=== PATIENT | male | born 1955 | race Caucasian/White ===

== ENCOUNTER 2023-12-22 10:13 | Inpatient (IN) | payer MEDICARE ==
[2023-12-22 10:42] LABS: Basophils # (A) 0.1 k/uL (0-0.2); Basophils % (A) 1 %; Eosinophils # (A) 0.7 k/uL (0-0.7); Eosinophils % (A) 6 %; HCT 48.4 % (39.0-53.0); HGB 15.7 gm/dL (13.0-17.5); Lymphocytes # (A) 2.2 k/uL (1.0-4.8); Lymphocytes % (A) 18 %; MCH 32.1 pg (25.0-35.0); MCHC 32.4 g/dL (31.0-37.0); Mean Platelet Volume 7.7; Monocytes # (A) 0.5 k/uL (0-1.0); Monocytes % (A) 4 %; Neutrophils # (A) 8.4 k/uL (1.3-7.7); Neutrophils % (A) 70 %; Platelet Count 216 k/uL (150-450); RBC 4.89 m/uL (4.30-5.90); RDW 13.5 % (11.5-15.5)
[2023-12-22] MEDS: SODIUM CHLORIDE 0.9% 500 ML 500 ML IV STA (10:42)
[2023-12-22 10:48] LABS: AST 30 U/L (17-59); African American GFR (CKD) 59 (>60 ml/min/1.73 sqM); Albumin 4.6 g/dL (3.5-5.0); Alkaline Phosphatase 83 U/L (38-126); Anion Gap 19 mmol/L; Blood Urea Nitrogen 12 mg/dL (9-20); Calcium 9.6 mg/dL (8.4-10.2); Carbon Dioxide 14 mmol/L (22-30); Chloride 102 mmol/L (98-107); Creatine Kinase 136 U/L (55-170); Glucose 145 mg/dL (74-99); Non-African American GFR(CKD) 51 (>60 ml/min/1.73 sqM); Potassium 4.5 mmol/L (3.5-5.1); Sodium 135 mmol/L (137-145); Total Bilirubin 0.7 mg/dL (0.2-1.3)
[2023-12-22 10:54] LABS: ALT 35 U/L (4-49)
--- NOTE | 2023-12-22 10:58 | ED ---
General Adult HPI - General Chief complaint: Neuro Symptoms/Deficit Stated complaint: neuro symp Time Seen by Provider: 12/22/23 10:15 Source: patient, RN notes reviewed, old records reviewed Mode of arrival: EMS Limitations: no limitations - History of Present Illness Initial comments: This is a 67-year-old male who is brought in by EMS patient was awake and acting normal drinking coffee when all of a sudden his left arm started to curl up and started shaking and the patient thereafter went unresponsive he was unresponsive for about 5 minutes according to family while he was unresponsive the sister states he was shaking and EMS arrived he remained unresponsive when he woke he was having difficulty moving his left side he had some slurred speech but that slowly all resolved by the time he got to the emergency department. 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 Patient denies headache patient denies any numbness or weakness currently. Patient denies any chest pain difficulty breathing shortness of breath. Patient has any recent fever chills or cough or patient has any abdominal pain patient has nausea vomiting diarrhea - Related Data Home Medications Medication Instructions Recorded Confirmed Albuterol Sulfate [Albuterol 1 - 2 puff PO RT-Q4H PRN 12/22/23 12/22/23 Sulfate Hfa] Atorvastatin [Lipitor] 40 mg PO HS 12/22/23 12/22/23 Budesonide/Formoterol Fumarate 2 puff INHALATION RT-BID 12/22/23 12/22/23 [Symbicort 160-4.5 Mcg Inhaler] Clopidogrel [Plavix] 75 mg PO DAILY 12/22/23 12/22/23 Folic Acid 1 mg PO DAILY 12/22/23 12/22/23 Furosemide [Lasix] 20 mg PO DAILY 12/22/23 12/22/23 Metoprolol Tartrate [Lopressor] 25 mg PO DAILY 12/22/23 12/22/23 NIFEdipine XL [Procardia XL] 60 mg PO DAILY 12/22/23 12/22/23 Nitroglycerin Sl Tabs [Nitrostat] 0.4 mg SUBLINGUAL Q5M PRN 12/22/23 12/22/23 [place]-3/Dha/Epa/Fish Oil [Fish Oil 2 cap PO BID 12/22/23 12/22/23 1,000 mg Softgel] Pantoprazole [Protonix] 40 mg PO DAILY 12/22/23 12/22/23 Potassium Chloride ER [K-Dur 10] 10 meq PO DAILY 12/22/23 12/22/23 Sertraline [Zoloft] 100 mg PO DAILY 12/22/23 12/22/23 lisinopriL [Zestril] 20 mg PO DAILY 12/22/23 12/22/23 metHOTREXate sodium [Methotrexate] 15 mg PO WHITTEN 12/22/23 12/22/23 traZODone HCL [Desyrel] 100 mg PO HS 12/22/23 12/22/23 Allergies Allergy/AdvReac Type Severity Reaction Status Date / Time No Known Allergies Allergy Verified 12/22/23 14:45 Review of Systems ROS Statement: Those systems with pertinent positive or pertinent negative responses have been documented in the HPI. ROS Other: All systems not noted in ROS Statement are negative. Past Medical History Past Medical History: CVA/TIA, Hyperlipidemia, Hypertension History of Any Multi-Drug Resistant Organisms: None Reported Additional Past Surgical History / Comment(s): CABG 2018 Past Psychological History: Depression Smoking Status: Never smoker Past Alcohol Use History: Occasional Past Drug Use History: Marijuana General Exam - General Exam Comments Initial Comments: GENERAL: Patient is well-developed and well-nourished. Patient is nontoxic and well- hydrated and is in mild distress. ENT: Neck is soft and supple. No significant lymphadenopathy is noted. Oropharynx is clear. Moist mucous membranes. Neck has full range of motion without eliciting any pain. EYES: The sclera were anicteric and conjunctiva were pink and moist. Extraocular movements were intact and pupils were equal round and reactive to light. Eyelids were unremarkable. PULMONARY: Unlabored respirations. Good breath sounds bilaterally. No audible rales rhonchi or wheezing was noted. CARDIOVASCULAR: There is a regular rate and rhythm without any murmurs gallops or rubs. ABDOMEN: Soft and nontender with normal bowel sounds. SKIN: Skin is clear with no lesions or rashes and otherwise unremarkable. NEUROLOGIC: Patient is alert and oriented x3. Cranial nerves II through XII are grossly intact. Motor and sensory are also intact. Patient bit his tongue so he does have a little mumbled speech but otherwise he is fairly clear and when family arrived they stated his voice sounded normal to patient's NIH is 0 MUSCULOSKELETAL: Normal extremities with adequate strength and full range of motion. LYMPHATICS: No significant lymphadenopathy is noted PSYCHIATRIC: Normal psychiatric evaluation. Limitations: no limitations Course Vital Signs 12/22/23 12/22/23 12/22/23 10:15 10:45 14:00 Temperature 97.8 F 98.8 F Pulse Rate 87 77 67 Respiratory 18 18 18 Rate Blood Pressure 143/80 148/72 113/74 O2 Sat by Pulse 96 94 L 98 Oximetry Medical Decision Making - Medical Decision Making EKG is interpreted by myself. EKG shows a sinus rhythm at 81 bpm parable 143 QRS is 90 QT interval is 409 QTc is 446. Patient's EKG shows no ST segment ovation or depression. Was pt. sent in by a medical professional or institution (, PA, LICENSED EMBALMER, urgent care, hospital, or halfway...) When possible be specific @ -[No] Did you speak to anyone other than the patient for history (EMS, parent, family, police, friend...)? What history was obtained from this source @ -EMS gave clear history because during the episode the patient was unresponsive. Family later contributed to the history because they were there when the patient went unresponsive Did you review nursing and triage notes (agree or disagree)? Why? @ -[I reviewed and agree with nursing and triage notes] Were old charts reviewed (outside hosp., previous admission, EMS record, old EKG, old radiological studies, urgent care reports/EKG's, halfway records)? Report findings @ -[No old charts were reviewed] Differential Diagnosis? @ -Differential Seizure: Recurrent seizure disorder, febrile seizure, alcohol withdrawal, stimulants, meningitis, encephalitis, intercranial hemorrhage, intracranial tumor, stroke, eclampsia, thyrotoxicosis, hypocalcemia, hyponatremia, hypernatremia, hyp omagnesemia, psychogenic, this is not meant to be an all-inclusive list. Differential CVA Ischemic stroke, hemorrhagic stroke, brain tumor, atypical migraine, Wernicke's encephalopathy, seizure, multiple sclerosis, meningitis, encephalitis, hypoglycemia, Guillain-Murphy, electrolytes disturbance, myasthenia gravis.... This is not meant to be an all-inclusive list EKG interpreted by me (3pts min.). @ -[As above] X-rays interpreted by me (1pt min.). @ -Chest x-ray shows no acute abnormality CT interpreted by me (1pt min.). @ -CT of the brain shows no significant acute abnormality there is remote injury. CT angiogram shows a right internal carotid artery occlusion. U/S interpreted by me (1pt. min.). @ -[None done] What testing was considered but not performed or refused? (CT, X-rays, U/S, la bs)? Why? @ -[None] What meds were considered but not given or refused? Why? @ -[None] Did you discuss the management of the patient with other professionals (professionals i.e. , PA, LICENSED EMBALMER, lab, RT, psych nurse, social science analyst, help desk operator, teacher, electoral officer, watch case polisher)? Give summary @ -I spoke with the treatment and hospitalist they agreed to admit the patient admit the patient orders. I spoke with Dr. Elizondo on [address] Molina has agreed the patient should be admitted put on Plavix and aspirin and have a vascular surgeon see the patient. Was smoking cessation discussed for >3mins.? @ -[No] Was critical care preformed (if so, how long)? @ -35 minutes Were there social determinants of health that impacted care today? How? (Homelessness, low income, unemployed, alcoholism, drug addiction, transportation, low edu. Level, literacy, decrease access to med. care, nursing home, rehab)? @ -[No] Was there de-escalation of care discussed even if they declined (Discuss DNR or withdrawal of care, Hospice)? DNR status @ -[No] What co-morbidities impacted this encounter? (DM, HTN, Smoking, COPD, CAD, Cancer, CVA, ARF, Chemo, Hep., AIDS, mental health diagnosis, sleep apnea, morbid obesity)? @ -[None] Was patient admitted / discharged? Hospital course, mention meds given and route, prescriptions, significant lab abnormalities, going to OR and other pertinent info. @ -Once family arrived they gave the history which was much more consistent with a seizure than a stroke. Patient's NIH on arrival was 0 he did have a little bit of muffled speech but he thought because he had bit his tongue and that slowly cleared up once the swelling went down. I spoke with [facility] hospitalist agreed admit the patient but the patient and consulted neurology as well as vascular surgery. Elevation of the lactic acid does not appear to be from infection appears to be secondary from seizure Undiagnosed new problem with uncertain prognosis? @ -[No] Drug Therapy requiring intensive monitori. Patient'sg for toxicity (Heparin, Nitro, Insulin, Cardizem)? @ -[No] Were any procedures done? @ -[No] Diagnosis/symptom? @ -New onset seizure Acute, or Chronic, or Acute on Chronic? @ -Acute Uncomplicated (without systemic symptoms) or Complicated (systemic symptoms)? @ -[default] Side effects of treatment? @ -[No] Exacerbation, Progression, or Severe Exacerbation? @ -[No] Poses a threat to life or bodily function? How? (Chest pain, USA, VT, pneumonia, PE, COPD, DKA, ARF, appy, cholecystitis, CVA, Diverticulitis, Homicidal, Suicidal, threat to staff... and all critical care pts) @ -Yes this could be potentially underlying stroke which could lead to significant CVA. - Lab Data Result diagrams: 12/22/23 10:28 12/22/23 10:28 Lab Results 12/22/23 12/22/23 12/22/23 Range/Units 10:28 10:28 10:28 WBC 12.0 H (3.8-10.6) k/uL RBC 4.89 (4.30-5.90) m/uL Hgb 15.7 (13.0-17.5) gm/dL Hct 48.4 (39.0-53.0) % MCV 99.0 (80.0-100.0) fL MCH 32.1 (25.0-35.0) pg MCHC 32.4 (31.0-37.0) g/dL RDW 13.5 (11.5-15.5) % Plt Count 216 (150-450) k/uL MPV 7.7 Neutrophils % 70 % Lymphocytes % 18 % Monocytes % 4 % Eosinophils % 6 % Basophils % 1 % Neutrophils # 8.4 H (1.3-7.7) k/uL Lymphocytes # 2.2 (1.0-4.8) k/uL Monocytes # 0.5 (0-1.0) k/uL Eosinophils # 0.7 (0-0.7) k/uL Basophils # 0.1 (0-0.2) k/uL PT 10.4 (10.0-12.5) sec INR 0.9 (<1.2) APTT 24.1 (22.0-30.0) sec Sodium 135 L (137-145) mmol/L Potassium 4.5 (3.5-5.1) mmol/L Chloride 102 (98-107) mmol/L Carbon Dioxide 14 L (22-30) mmol/L Anion Gap 19 mmol/L BUN 12 (9-20) mg/dL Creatinine 1.41 H (0.66-1.25) mg/dL Est GFR (CKD-EPI)AfAm 59 (>60 ml/min/1.73 sqM) Est GFR (CKD-EPI)NonAf 51 (>60 ml/min/1.73 sqM) Glucose 145 H (74-99) mg/dL Lactic Ac Sepsis Rflx Plasma Lactic Acid Lloyd (0.7-2.0) mmol/L Calcium 9.6 (8.4-10.2) mg/dL Total Bilirubin 0.7 (0.2-1.3) mg/dL AST 30 (17-59) U/L ALT 35 (4-49) U/L Alkaline Phosphatase 83 (38-126) U/L Creatine Kinase 136 (55-170) U/L Troponin I (0.000-0.034) ng/mL Total Protein 7.0 (6.3-8.2) g/dL Albumin 4.6 (3.5-5.0) g/dL 12/22/23 12/22/23 12/22/23 Range/Units 10:28 10:28 11:40 WBC (3.8-10.6) k/uL RBC (4.30-5.90) m/uL Hgb (13.0-17.5) gm/dL Hct (39.0-53.0) % MCV (80.0-100.0) fL MCH (25.0-35.0) pg MCHC (31.0-37.0) g/dL RDW (11.5-15.5) % Plt Count (150-450) k/uL MPV Neutrophils % % Lymphocytes % % Monocytes % % Eosinophils % % Basophils % % Neutrophils # (1.3-7.7) k/uL Lymphocytes # (1.0-4.8) k/uL Monocytes # (0-1.0) k/uL Eosinophils # (0-0.7) k/uL Basophils # (0-0.2) k/uL PT (10.0-12.5) sec INR (<1.2) APTT (22.0-30.0) sec Sodium (137-145) mmol/L Potassium (3.5-5.1) mmol/L Chloride (98-107) mmol/L Carbon Dioxide (22-30) mmol/L Anion Gap mmol/L BUN (9-20) mg/dL Creatinine (0.66-1.25) mg/dL Est GFR (CKD-EPI)AfAm (>60 ml/min/1.73 sqM) Est GFR (CKD-EPI)NonAf (>60 ml/min/1.73 sqM) Glucose (74-99) mg/dL Lactic Ac Sepsis Rflx Y Plasma Lactic Acid Lloyd 13.3 H* (0.7-2.0) mmol/L Calcium (8.4-10.2) mg/dL Total Bilirubin (0.2-1.3) mg/dL AST (17-59) U/L ALT (4-49) U/L Alkaline Phosphatase (38-126) U/L Creatine Kinase (55-170) U/L Troponin I <0.012 (0.000-0.034) ng/mL Total Protein (6.3-8.2) g/dL Albumin (3.5-5.0) g/dL 12/22/23 Range/Units 15:16 WBC (3.8-10.6) k/uL RBC (4.30-5.90) m/uL Hgb (13.0-17.5) gm/dL Hct (39.0-53.0) % MCV (80.0-100.0) fL MCH (25.0-35.0) pg MCHC (31.0-37.0) g/dL RDW (11.5-15.5) % Plt Count (150-450) k/uL MPV Neutrophils % % Lymphocytes % % Monocytes % % Eosinophils % % Basophils % % Neutrophils # (1.3-7.7) k/uL Lymphocytes # (1.0-4.8) k/uL Monocytes # (0-1.0) k/uL Eosinophils # (0-0.7) k/uL Basophils # (0-0.2) k/uL PT (10.0-12.5) sec INR (<1.2) APTT (22.0-30.0) sec Sodium (137-145) mmol/L Potassium (3.5-5.1) mmol/L Chloride (98-107) mmol/L Carbon Dioxide (22-30) mmol/L Anion Gap mmol/L BUN (9-20) mg/dL Creatinine (0.66-1.25) mg/dL Est GFR (CKD-EPI)AfAm (>60 ml/min/1.73 sqM) Est GFR (CKD-EPI)NonAf (>60 ml/min/1.73 sqM) Glucose (74-99) mg/dL Lactic Ac Sepsis Rflx Plasma Lactic Acid Lloyd 1.2 (0.7-2.0) mmol/L Calcium (8.4-10.2) mg/dL Total Bilirubin (0.2-1.3) mg/dL AST (17-59) U/L ALT (4-49) U/L Alkaline Phosphatase (38-126) U/L Creatine Kinase (55-170) U/L Troponin I (0.000-0.034) ng/mL Total Protein (6.3-8.2) g/dL Albumin (3.5-5.0) g/dL Critical Care Time Critical Care Time: Yes Total Critical Care Time: 35 Disposition Clinical Impression: New onset seizure, Internal carotid artery occlusion Disposition: ADMITTED IP TO THIS [facility] Is patient prescribed a controlled substance at d/c from ED?: No Time of Disposition: 15:15
[2023-12-22 10:59] LABS: INR 0.9 (<1.2); Partial Thromboplastin Time 24.1 sec (22.0-30.0); Prothrombin Time 10.4 sec (10.0-12.5)
--- NOTE | 2023-12-22 11:06 | CT ---
EXAMINATION TYPE: CT brain wo con CT DLP: 1164.7 mGycm, Automated exposure control for dose reduction was used. DATE OF EXAM: 12/22/2023 10:45 AM COMPARISON: No priors available. CLINICAL INDICATION:Male, 68 years old with history of Neuro deficit, acute, stroke suspected, LT kady e deficit. previous CVA. TECHNIQUE: Brain: Axial CT images of the brain were obtained with coronal and sagittal reformats created and rev iewed. Contrast used: None. Oral contrast used: None. FINDINGS: There is mild to moderate generalized brain atrophy with associated enlargement of the ventricles and CSF spaces. There is additional mild superimposed ex vacuo dilatation of the right lateral ventricle secondary to a moderate-sized area of encephalomalacia in the right MCA territory compatible with a remote infarct. Area of hypoattenuation in the left cerebellar hemisphere also suggestive of probably remote infarct. No definite loss of teran matter distinction or sulcal effacement is seen to suggest acute territorial infarction. Remote-appearing small lacunar infarct in the left basal ganglia near the caudate head. No evidence of acute intracranial hemorrhage, extra-axial fluid collection, mass effect, or midline s hift. No acute osseous abnormality is seen. Mild mucosal thickening in the right maxillary sinus without ap preciable paranasal sinus fluid accumulation. Mastoid air cells are clear. Mild atherosclerotic calcifications of the larger arteries near the skull base. MRI is more sensitive for detecting acute processes such as infarct, and may be considered if clinica lly warranted. IMPRESSION: 1. No acute intracranial CT abnormality. 2. Remote infarcts right MCA territory, left cerebellum, and left basal ganglia lacunar infarct. 3. Mild to moderate generalized atrophy.
--- NOTE | 2023-12-22 12:20 | XR ---
EXAMINATION TYPE: XR chest 2V DATE OF EXAM: 12/22/2023 11:19 AM CLINICAL INDICATION:Male, 68 years old with history of altered mental status; H COMPARISON: None TECHNIQUE: XR chest 2V Frontal view of the chest. FINDINGS: Lungs/Pleura: There is no evidence of pleural effusion, focal consolidation, or pneumothorax. Pulmonary vascularity: Unremarkable. Heart/mediastinum: Cardiomediastinal silhouette is unremarkable. Musculoskeletal: No acute osseous pathology. Midline sternotomy wires are noted.Right-sided rib fract ures appear chronic. Other findings: None IMPRESSION: No acute cardiopulmonary disease/process.
--- NOTE | 2023-12-22 13:38 | CT ---
EXAMINATION TYPE: CT angio head neck DATE OF EXAM: 12/22/2023 12:24 PM COMPARISON: Correlation with concurrent CT brain. CLINICAL INDICATION:Male, 68 years old with history of Neuro deficit, acute, stroke suspected; PHH, C ODE STROKE TECHNIQUE: Axially acquired helical CT angiogram of the head and neck was obtained with contrast. Axi al images are supplemented with 3D reconstructions [facility] NASCET criteria used. Contrast used: 65 ml mL of Isovue 370 IV Oral contrast used: None. CT DLP: 596.2 mGycm, Automated exposure control for dose reduction was used. FINDINGS: CTA Neck: A 3 vessel aortic arch is shown. Moderate mostly calcified atherosclerotic plaque is present along t he aortic arch and involving the proximal branch vessels with mild stenosis of the branch vessels. N o evidence of dissection. Right carotid system: The common carotid is patent. There is heavy mixed soft and calcified plaque at the carotid bifurcation and proximal ICA, with nonopacification of the proximal ICA and continuing d istally to at least the skull base, consistent with occlusion. The ECA is patent. Left carotid system: The common carotid is patent. There is moderate soft and calcified plaque at the carotid bifurcation and proximal ICA, resulting in 50-60% luminal stenosis of the proximal ICA. ICA is thereafter patent to the skull base. The ECA is patent. Vertebral arteries: Moderate stenosis of the origin of the right vertebral artery appears related to mostly calcified plaque. Vessel is thereafter patent. The left vertebral artery is highly diminutive, and its origin is difficult to visualize. The proxima l portion may be occluded. Farther cranially, a small caliber opacified vertebral artery is seen with in the transverse foramina and appears patent to the C1 level, however again not clearly seen in its proximal V4 segment and may be occluded. Farther distally near the basilar, this vessel reappears whi ch could be from collateral flow. Other: Visualized neck soft tissues show no acute concerning abnormality. No sizable thyroid nodulari ty of concern. Cervical spine shows mild/moderate degenerative changes with mild/moderate canal and foraminal stenos es at the C5-6 and C6-7 levels primarily. No acute bony abnormality is suggested. Included lung apices show moderate to severe emphysematous changes without evidence of acute infiltra te or pneumothorax. There are relatively flat multiple pleural plaques demonstrated bilaterally, at l east one of which is partially calcified on the right. There are partially seen sternotomy wires, and likely post-CABG changes. CTA Head: On the right, there is partial reconstitution of the occluded cervical ICA proximal to the siphon por tion, but then mostly calcified plaque is present which again appears to result in occlusion or near occlusion. At the terminus, a patent right posterior communicating artery is seen, likely supplying t he right MCA and RUCHI. The right MCA appears patent without evidence of critical stenosis or abrupt cu t off/occlusion seen. Mild irregularity of this vessel and decreased caliber compared to the left, li steven from atherosclerosis and sequela of the previous sizable right MCA infarct. Right RUCHI is patent with suggestion of mild atherosclerotic changes. Anterior communicating artery is not clearly identif ied. On the left, there is moderate mostly calcified plaque throughout the siphon region without critical stenosis seen. The carotid terminus appears patent, and the left MCA appears patent and larger in jay iber compared to the right side. No high-grade stenosis, cut off/occlusion is seen. The left RUCHI appe ars patent with mild atherosclerotic disease. A left posterior communicating artery is not identified . Posteriorly, the diminutive left vertebral artery is likely occluded in its proximal intracranial por tion with some reconstitution seen distally and remains patent to the basilar. The dominant right дмитрий tebral artery shows mild atherosclerotic disease but no significant stenosis. Basilar artery is paten t, appears normal in course and caliber and the basilar bifurcation is unremarkable without aneurysm seen. Proximal bilateral posterior cerebral arteries appear patent. No abnormal intracranial enhancement is suggested. Please refer to prior head CT for further details. The dural venous sinuses appear grossly enhancing without evidence to suggest thrombus. IMPRESSION: CTA neck: 1. Moderate mostly calcified atherosclerotic plaque along the aortic arch and proximal branch vessel s with mild stenosis of the branch vessels. 2. Right common carotid is patent. Heavy plaque is present, with occlusion of the right ICA beginnin g at its origin. 3. Left common carotid is patent. Moderate soft and calcified plaque at the carotid bifurcation and proximal ICA, resulting in 50-60% luminal diameter stenosis of the proximal left ICA. 4. Moderate stenosis of the origin of the right vertebral artery appears related to mostly calcified plaque. Vessel is thereafter patent. 5. Left vertebral artery is highly diminutive, and segmental occlusions in its proximal and distal a spects are suggested with some reconstitution in the distal V4 segment. 6. Moderate to severe pulmonary emphysematous changes in the apices. Multiple pleural plaques demons trated bilaterally, at least one of which is partially calcified on the right, likely related to prio r asbestos exposure. Further evaluation and follow-up with outpatient chest CT may be of benefit. CTA head: 1. Partial reconstitution of the occluded right ICA proximal to the siphon portion, but then mostly calcified plaque again appears to result in occlusion or near occlusion. At the terminus, a patent ri ght posterior communicating artery is seen, likely supplying the right MCA and RUCHI. 2. Right MCA appears patent without evidence of critical stenosis or abrupt cut off/occlusion. Mild irregularity of this vessel and decreased caliber compared to the left, likely from atherosclerosis a nd sequela of the previous right MCA territory infarct. 3. Moderate mostly calcified plaque throughout the left ICA siphon region without critical stenosis seen. The carotid terminus appears patent, and the left MCA appears patent and larger in caliber comp ared to the right side. No high-grade stenosis, cut off/occlusion is seen. 4. Bilateral patent ACAs with mild atherosclerotic disease.
[2023-12-22] MEDS: ASPIRIN 325 MG TAB PO STA (16:37)
--- NOTE | 2023-12-22 19:42 | P.HPIM ---
History of Present Illness H&P Date: 12/22/23 Chief Complaint: Neurological symptoms 67-year-old male who is brought in by EMS patient was awake and acting normal drinking coffee when all of a sudden his left arm started to curl up and started shaking and the patient thereafter went unresponsive he was unresponsive for about 5 minutes according to family while he was unresponsive the sister states he was shaking and EMS arrived he remained unresponsive when he woke he was having difficulty moving his left side he had some slurred speech but that slowly all resolved by the time he got to the emergency department. 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 Patient denies headache patient denies any numbness or weakness currently. Patient denies any chest pain difficulty breathing shortness of breath. Patient has any recent fever chills or cough or patient has any abdominal pain patient has nausea vomiting diarrhea Blood work completed in ED reveals a WBC of 12, hemoglobin of 15.7 and platelet count of 216, sodium 135, potassium 4.5, bicarb 14, creatinine 1.41, lactic acid level of 13.3 and blood glucose of 145, lactic acid less than 0.012 EKG shows a sinus rhythm at 81 bpm parable 143 QRS is 90 QT interval is 409 QTc is 446. Patient's EKG shows no ST segment ovation or depression. -Chest x-ray shows no acute abnormality CT of the brain shows no significant acute abnormality there is remote injury. CT angiogram shows a right internal carotid artery occlusion. Review of Systems REVIEW OF SYSTEMS: CONSTITUTIONAL: No fever, no malaise, no fatigue. HEENT: No recent visual problems or hearing problems. Denied any sore throat. CARDIOVASCULAR: No chest pain, orthopnea, PND, no palpitations, no syncope. PULMONARY: No shortness of breath, no cough, no hemoptysis. GASTROINTESTINAL: No diarrhea, no nausea, no vomiting, no abdominal pain. NEUROLOGICAL: No headaches, no weakness, no numbness. HEMATOLOGICAL: Denies any bleeding or petechiae. GENITOURINARY: Denies any burning micturition, frequency, or urgency. MUSCULOSKELETAL/RHEUMATOLOGICAL: Denies any joint pain, swelling, or any muscle pain. ENDOCRINE: Denies any polyuria or polydipsia. The rest of the 14-point review of systems is negative. Past Medical History Past Medical History: CVA/TIA, Hyperlipidemia, Hypertension History of Any Multi-Drug Resistant Organisms: None Reported Additional Past Surgical History / Comment(s): CABG 2018 Past Psychological History: Depression Smoking Status: Never smoker Past Alcohol Use History: Occasional Past Drug Use History: Marijuana Medications and Allergies Home Medications Medication Instructions Recorded Confirmed Type Albuterol Sulfate [Albuterol 1 - 2 puff PO RT-Q4H PRN 12/22/23 12/22/23 History Sulfate Hfa] Atorvastatin [Lipitor] 40 mg PO HS 12/22/23 12/22/23 History Budesonide/Formoterol Fumarate 2 puff INHALATION RT-BID 12/22/23 12/22/23 History [Symbicort 160-4.5 Mcg Inhaler] Clopidogrel [Plavix] 75 mg PO DAILY 12/22/23 12/22/23 History Folic Acid 1 mg PO DAILY 12/22/23 12/22/23 History Furosemide [Lasix] 20 mg PO DAILY 12/22/23 12/22/23 History Metoprolol Tartrate [Lopressor] 25 mg PO DAILY 12/22/23 12/22/23 History NIFEdipine XL [Procardia XL] 60 mg PO DAILY 12/22/23 12/22/23 History Nitroglycerin Sl Tabs [Nitrostat] 0.4 mg SUBLINGUAL Q5M PRN 12/22/23 12/22/23 History [place]-3/Dha/Epa/Fish Oil [Fish Oil 2 cap PO BID 12/22/23 12/22/23 History 1,000 mg Softgel] Pantoprazole [Protonix] 40 mg PO DAILY 12/22/23 12/22/23 History Potassium Chloride ER [K-Dur 10] 10 meq PO DAILY 12/22/23 12/22/23 History Sertraline [Zoloft] 100 mg PO DAILY 12/22/23 12/22/23 History lisinopriL [Zestril] 20 mg PO DAILY 12/22/23 12/22/23 History metHOTREXate sodium [Methotrexate] 15 mg PO WHITTEN 12/22/23 12/22/23 History traZODone HCL [Desyrel] 100 mg PO HS 12/22/23 12/22/23 History Allergies Allergy/AdvReac Type Severity Reaction Status Date / Time No Known Allergies Allergy Verified 12/22/23 14:45 Physical Exam Vitals: Vital Signs Temp Pulse Resp BP Pulse Ox 12/22/23 15:00 67 17 114/78 96 12/22/23 14:00 98.8 F 67 18 113/74 98 12/22/23 10:45 77 18 148/72 94 L 12/22/23 10:15 97.8 F 87 18 143/80 96 Intake and Output 12/22/23 12/22/23 12/22/23 06:59 14:59 22:59 Other: Weight 83.007 kg Patient is well-developed and well-nourished. Patient is nontoxic and well-hydr ated and is in mild distress. ENT:Neck is soft and supple. No significant lymphadenopathy is noted. Oropharynx is clear. Moist mucous membranes. Neck has full range of motion without eliciting any pain. EYES:The sclera were anicteric and conjunctiva were pink and moist. Extraocular movements were intact and pupils were equal round and reactive to light. Eyelids were unremarkable. PULMONARY:Unlabored respirations. Good breath sounds bilaterally. No audible rales rhonchi or wheezing was noted. CARDIOVASCULAR:There is a regular rate and rhythm without any murmurs gallops or rubs. ABDOMEN:Soft and nontender with normal bowel sounds. SKIN:Skin is clear with no lesions or rashes and otherwise unremarkable. NEUROLOGIC:Patient is alert and oriented x3. Cranial nerves II through XII are grossly intact. Motor and sensory are also intact. Patient bit his tongue so he does have a little mumbled speech but otherwise he is fairly clear and when family arrived they stated his voice sounded normal to patient's NIH is 0 MUSCULOSKELETAL:Normal extremities with adequate strength and full range of motion. PSYCHIATRIC:Normal psychiatric evaluation. Results CBC & Chem 7: 12/22/23 10:28 12/22/23 10:28 Labs: Abnormal Lab Results - Last 24 Hours (Table) 12/22/23 12/22/23 12/22/23 Range/Units 10:28 10:28 10:28 WBC 12.0 H (3.8-10.6) k/uL Neutrophils # 8.4 H (1.3-7.7) k/uL Sodium 135 L (137-145) mmol/L Carbon Dioxide 14 L (22-30) mmol/L Creatinine 1.41 H (0.66-1.25) mg/dL Glucose 145 H (74-99) mg/dL Plasma Lactic Acid Lloyd 13.3 H* (0.7-2.0) mmol/L Assessment and Plan Assessment: 1. Stable new onset seizures -History provided by family members at bedside and most consistent with stroke -Elevated lactic acid likely secondary to seizure; no signs of infection -We will order prolactin levels -Consult neurology 2. Right internal carotid artery occlusion; consult vascular surgery for further evaluation 3. Elevated lactic acid level; likely related to seizure episode; we will monitor CBC, CRP and procalcitonin; lactic acid level is within normal limit 4. Acute renal injury; IV fluid hydration with half-normal saline at a rate of 75 cc an hour; monitor strict ADI's, daily weights, renal function electrolytes; nephrotoxins and hypotension 5. Hypertension; lisinopril 20 mg daily; hold given elevated BUN/creatinine; continue with metoprolol 25 mg daily and nifedipine 60 mg daily; Lasix 20 mg daily 6. Hyperlipidemia; Lipitor 40 mg p.o. nightly 7. Asthma/COPD; continue with home inhaler therapy 8. Coronary artery disease; stable on aspirin, statins, metoprolol and Plavix VTE prophylaxis; SCDs CODE STATUS; full code
[2023-12-22] MEDS: SYMBICORT 160-4.5 MCG INHALER INHALATION SCH (21:31)
[2023-12-22] MEDS: ATORVASTATIN 40 MG TAB PO SCH (21:52)
[2023-12-22] MEDS: traZODone HCL 100 MG TAB PO SCH (21:52)
[2023-12-22] MEDS: SODIUM CHLORIDE 0.45% 1,000 ML IV SCH (21:54)
[2023-12-23 04:41] VITALS: BP 109/66; PULSE 62; RESP 16; TEMP 97.5
[2023-12-23] MEDS ORDERED: ASPIRIN 325 MG TAB ONE (08:10)
[2023-12-23] MEDS ORDERED: CLOPIDOGREL 75 MG TAB ONE (08:10)
[2023-12-23] MEDS ORDERED: PANTOPRAZOLE 40 MG TABLET PO ONE (08:10)
[2023-12-23] MEDS ORDERED: METOPROLOL TARTRATE 25 MG TAB ONE (08:10)
[2023-12-23] MEDS ORDERED: FOLIC ACID 1 MG TAB ONE (08:11)
[2023-12-23] MEDS ORDERED: SERTRALINE 50 MG TAB ONE (08:11)
[2023-12-23] MEDS ORDERED: METOPROLOL TARTRATE 25 MG TAB PO SCH (09:00)
[2023-12-23] MEDS ORDERED: SERTRALINE 50 MG TAB PO SCH (09:00)
[2023-12-23] MEDS ORDERED: PANTOPRAZOLE 40 MG TABLET PO SCH (09:00)
[2023-12-23] MEDS ORDERED: ASPIRIN 325 MG TAB PO SCH (09:00)
[2023-12-23] MEDS ORDERED: CLOPIDOGREL 75 MG TAB PO SCH ×2 (09:00)
[2023-12-23] MEDS ORDERED: FOLIC ACID 1 MG TAB PO SCH (09:00)
[2023-12-23] MEDS ORDERED: lisinopriL 20 MG TAB ONE (16:36)
[2023-12-23] MEDS ORDERED: traZODone HCL 100 MG TAB ONE (20:00)
[2023-12-23] MEDS ORDERED: ATORVASTATIN 40 MG TAB ONE (20:00)
[2023-12-23] MEDS ORDERED: levETIRAcetam IV 500 MG/5 ML VIAL ONE ×2 (22:34→22:45)
[2023-12-23] MEDS ORDERED: SODIUM CHLORIDE 0.9% 100 ML BAG IV ONE (22:45)
[2023-12-24] MEDS ORDERED: ASPIRIN 325 MG TAB ONE (08:46)
[2023-12-24] MEDS ORDERED: PANTOPRAZOLE 40 MG TABLET PO ONE (08:46)
[2023-12-24] MEDS ORDERED: METOPROLOL TARTRATE 25 MG TAB ONE (08:46)
[2023-12-24] MEDS ORDERED: lisinopriL 20 MG TAB ONE (08:46)
[2023-12-24] MEDS ORDERED: CLOPIDOGREL 75 MG TAB ONE (08:46)
[2023-12-24] MEDS ORDERED: levETIRAcetam 500 MG TAB ONE (08:47)
[2023-12-24] MEDS ORDERED: FOLIC ACID 1 MG TAB ONE (08:47)
[2023-12-24] MEDS ORDERED: SERTRALINE 50 MG TAB ONE (08:47)
--- NOTE | 2024-01-10 15:51 | HP ---
HISTORY AND PHYSICAL The patient is a pleasant 68-year-old male with a recent cerebrovascular accident involving left side of the body with some mild residual weakness, who came in with an episode of seizure witnessed by a family member who was present at the bedside when I evaluated the patient. The patient had a tonic clonic activity and spasms in the left side of the body followed by drooling of eyes, possible loss of consciousness by the time EMS picked him up. The rest of the story after EMS pickup is not available at this time and unknown whether the patient received Ativan and that made his symptoms improved. Patient did have tongue biting. Denied any loss of bladder or bowel continence. The patient denies any previous seizure history in the past. The patient denies any headache at this time. The patient had a CT of the head, which did not show any acute stroke. Carotid Doppler showed 50% to 60% ICA stenosis. The right carotid had a plaque as well. Chest x-ray within normal limits. PAST MEDICAL HISTORY: Significant for coronary artery disease, CABG in 2018, hypertension, hyperlipidemia, CVA in month of September of this year. HOME MEDICATIONS: Include: 1. Albuterol. 2. Budesonide. 3. Formoterol. 4. Lasix 20 mg daily. 5. Metoprolol. 6. Nifedipine. 7. Nitroglycerin. 8. Protonix. 9. Potassium chloride. 10.Sertraline. 11.Lisinopril. 12.Methotrexate. 13.Trazodone. 14.The patient does take aspirin and Plavix at home. SOCIAL HISTORY: Denies any smoking history. FAMILY HISTORY: Not available at this time. PHYSICAL EXAMINATION: VITAL SIGNS: Temperature 97.9, pulse of 69, blood pressure 196/95, saturating at 97% on room air. Head: Normocephalic, atraumatic. Neck: Supple, thyroid gland is not enlarged, no JVP is noted, no lymphadenopathy noted. ENT: No foci of infection. Eyes: DEBRA, external eye movements are normal, conjunctivae are pink. Lungs: Clear to auscultation bilaterally. Heart: S1, S2 can be heard, no gallops, rubs, or murmurs. Abdomen: Soft, nontender, no organomegaly, bowel sounds are heard in all four quadrants. Extremities: No cyanosis, clubbing, or edema, peripheral pulses are palpable. Cranial Nerves II to XII are intact. Neurological: The patient does not have any new focal deficit, but does have some mild weakness on the left side of the body in the left hand with some left droop for which patient is receiving physical therapy. Musculoskeletal: Muscle strength is symmetrical. ASSESSMENT AND PLAN: 1. New onset seizure. The patient will need workup with an MRI and an EEG. Neurology will be consulted. Patient will be started on Ativan as needed for seizure along with seizure precautions. I will leave the decision of MRI to Neurology. Physical Therapy and Occupational Therapy evaluation. 2. Recent history of cerebrovascular accident. I do not believe patient has a new stroke at this time. Patient will continue with aspirin, statin, and his atorvastatin. 3. -coronary artery disease. CABG in the past. 4. -hypertension. The patient is expected to have elevated blood pressure because of recent stroke. The patient will need permissive hypertension because of his recent stroke. 5. -hyperlipidemia. 6. -deep venous thrombosis prophylaxis. Early ambulation. JAVIER / LUIS ANTONION: [id number] /
[2024-01-15 10:48] LABS: African American GFR (CKD) 86 (>60 ml/min/1.73 sqM); Anion Gap 10 mmol/L; Blood Urea Nitrogen 15 mg/dL (9-20); Calcium 9.3 mg/dL (8.4-10.2); Carbon Dioxide 22 mmol/L (22-30); Chloride 103 mmol/L (98-107); Glucose 110 mg/dL (74-99); Non-African American GFR(CKD) 75 (>60 ml/min/1.73 sqM); Sodium 135 mmol/L (137-145)
[2024-01-15 10:49] LABS: WBC 11.4 k/uL (3.8-10.6)
[2024-01-15 10:50] LABS: HCT 47.3 % (39.0-53.0); HGB 15.5 gm/dL (13.0-17.5); RBC 4.82 m/uL (4.30-5.90)
[2024-01-15 10:51] LABS: Basophils % (A) 1 %; Eosinophils % (A) 5 %; Lymphocytes # (A) 1.5 k/uL (1.0-4.8); Lymphocytes % (A) 13 %; MCH 32.2 pg (25.0-35.0); MCHC 32.9 g/dL (31.0-37.0); MCV 98.1 fL (80.0-100.0); Monocytes % (A) 5 %; Neutrophils # (A) 8.5 k/uL (1.3-7.7); Neutrophils % (A) 77 %; Platelet Count 204 k/uL (150-450); RDW 13.7 % (11.5-15.5)
[2024-01-15 10:52] LABS: Eosinophils # (A) 0.1 k/uL (0-0.7); Monocytes # (A) 0.5 k/uL (0-1.0)
== END 2023-12-24 12:50 | disposition home or self-care (01) | DRG 101 ==
LOC: EC 10:13 → 3SCARD 15:18
PROVIDERS: ADMIT Hospitalist; ATTEND Hospitalist
DX: R56.9 Unspecified convulsions (principal); N17.9 Acute kidney failure, unspecified; E87.20 Acidosis, unspecified; I69.354 Hemiplegia and hemiparesis following cerebral infarction affecting left non-dominant side; I65.21 Occlusion and stenosis of right carotid artery; J44.9 Chronic obstructive pulmonary disease, unspecified; Z79.02 Long term (current) use of antithrombotics/antiplatelets; Z79.51 Long term (current) use of inhaled steroids; Z79.82 Long term (current) use of aspirin; Z79.899 Other long term (current) drug therapy; Z82.3 Family history of stroke; Z95.1 Presence of aortocoronary bypass graft; E78.5 Hyperlipidemia, unspecified
CPT/HCPCS: 36415; 70450; 70496; 70498; 71046; 80048; 80053; 80061; 82550; 83605; 84146; 84484; 85025; 85027; 85610; 85730; 93005; 94640; 94760; 96360; 99291